=== PATIENT | female | born 2000 | race Caucasian/White ===

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

== ENCOUNTER → 2021-01-28 00:06 | Observation (INO) ==
[2021-01-27 23:03] LABS: Bacteria,Urine Moderate per hpf (None-Few); Bilirubin,Urine Negative (Negative); Blood,Urine Negative (Negative); Clarity,Urine Turbid (Clear); Color,Urine Yellow (Yellow); Glucose,Urine (UA) Normal (Normal); Ketones,Urine Negative (Negative); Leukocyte Esterase,Urine Large (Negative); Mucus,Urine Few per lpf (None-Few); Nitrite,Urine Negative (Negative); PH,Urine 6.5 pH Units (5.0-8.0); Protein,Urine Negative (Neg-Trace); Specific Gravity,Urine 1.015 (1.010-1.025); Squamous Epithelial Cell,Urine Few per hpf (None-Few); Urobilinogen,Urine Normal (Normal); WBC,Urine 15-30 per hpf (0-3)
== END | disposition home or self-care (01) ==
LOC: 1NENULAB
PROVIDERS: ADMIT Advanced Practice Midwife; ATTEND Advanced Practice Midwife

== ENCOUNTER 2021-02-06 14:43 | Inpatient (IN) ==
[2021-02-06 12:55] LABS: Basophils # 0.1 K/mcL (0.0-0.2); Basophils % 0.5 %; Eosinophils # 0.1 K/mcL (0.0-0.6); Eosinophils % 0.4 %; Hematocrit 36.4 % (35.3-44.9); Hemoglobin 11.9 g/dL (11.5-15.4); Immature Granulocytes % 0.7 % (0-4); Lymphocytes # 2.1 K/mcL (0.6-4.6); Lymphocytes % 15.9 %; Mean Corpuscular HGB Conc 32.7 g/dL (31.6-35.5); Mean Corpuscular Hemoglobin 29.6 pg (28.0-33.3); Mean Corpuscular Volume 90.5 fL (83.0-100.0); Monocytes # 0.6 K/mcL (0.0-1.3); Monocytes % 4.7 %; Platelet Count 222 K/mcL (140-400); Red Blood Count 4.02 M/mcL (3.82-4.97); Red Cell Distribution Width 13.8 % (11.5-14.5); Segmented Neutrophils % 77.8 %; White Blood Count 12.9 K/mcL (4.3-11.1)
[2021-02-06 13:15] LABS: Protein/Creatinine Ratio,Urine 0.73 mg/mg (0.00-0.20)
[2021-02-06 13:25] LABS: Alanine Aminotransferase 29 Units/L (7-52); Aspartate Amino Transferase 17 Units/L (13-39); BUN/Creatinine Ratio 24 (6-26); Blood Urea Nitrogen 12 mg/dL (6-20); Lactate Dehydrogenase 128 Units/L (140-271); Uric Acid 4.5 mg/dL (2.3-7.6); eGFR For African Americans > 60 (> 60); eGFR For Non-African Americans > 60 (> 60)
[~2021-02-06 14:43] MED LIST changes: +Acetaminophen/Butalbital/CaffeineTABLET PO PRN; -Ondansetron ODT 4 MG TAB.RAPDIS SL ONE
[2021-02-06] MEDS ORDERED: EPHEDrine 50 MG/ML VIAL IVP PRN (16:02)
[2021-02-06] MEDS ORDERED: Epidural Premix (fent/bupiv) 110 ML EP SCH (16:15)
[2021-02-06] MEDS ORDERED: Penicillin G Potassium 5,000,000 UNIT in 0.9 % Sodium Chloride Mini Bag 100 ML IVPB ONE (16:19)
[2021-02-06] MEDS ORDERED: Lidocaine 1% 20 ML MDV ID PRN (16:35)
[2021-02-06] MEDS ORDERED: Ondansetron 4 MG/2 ML VIAL IVP PRN (16:35)
[2021-02-06] MEDS ORDERED: *HR* Nalbuphine 10 MG/ML AMPUL IV PRN (16:35)
[2021-02-06] MEDS ORDERED: Azithromycin 500 MG in 0.9 % Sodium Chloride 250 ML IVPB ONE (16:35)
[2021-02-06] MEDS ORDERED: Famotidine 20 MG/2 ML VIAL IVP PRN (16:35)
[2021-02-06] MEDS ORDERED: Naloxone 0.4 MG/ML INJ IVP PRN (16:35)
[2021-02-06] MEDS ORDERED: Metoclopramide 10 MG/2 ML VIAL IVP PRN (16:35)
[2021-02-06] MEDS ORDERED: Ringers Solution, Lactated 1,000 ML ONE (16:42)
[2021-02-06] MEDS ORDERED: Ringers Solution, Lactated 1,000 ML IVC SCH (16:45)
[2021-02-06] MEDS ORDERED: miSOPROStoL 100 MCG TABLET PO ONE (18:19)
[2021-02-06 20:20] LABS: Influenza A PCR Negative (Negative); Influenza B PCR Negative (Negative); Resp. Syncytial Virus PCR Negative (Negative)
[2021-02-06 20:21] LABS: SARS-CoV-2 by PCR (In House) Negative (Negative)
[2021-02-06] MEDS ORDERED: Penicillin G Potassium 2,500,000 UNIT/105 ML MLS IVPB SCH (20:30)
[2021-02-06] MEDS ORDERED: Ropivacaine/PF 0.2% 20 ML VIAL ONE (23:08)
[2021-02-06] MEDS ORDERED: *HR* FentaNYL (PF) 100 MCG/2 ML VIAL ONE (23:08)
[2021-02-07] MEDS ORDERED: Oxytocin 20 units/ LR 1000 mL 20 UNIT/1,000 ML BAG IVC SCH ×2 (01:00→06:00)
[2021-02-07] MEDS ORDERED: Measles/Mumps/Rubella Vacc 0.5 ML VIAL SQ PRN (05:56)
[2021-02-07] MEDS ORDERED: Benzocaine/Menthol 56 GM AEROSOL SPRAY TP PRN (05:56)
[2021-02-07] MEDS ORDERED: Rho Immune Globulin 1,500 UNIT SYRINGE IM PRN (05:56)
[2021-02-07] MEDS: Prenatal Vit/FA 1 EACH TABLET PO SCH (09:16)
[2021-02-07] MEDS: Ibuprofen 600 MG TABLET PO PRN ×2 (09:16→18:00)
[2021-02-07] MEDS: Acetaminophen 325 MG TABLET PO PRN ×2 (10:34→20:32)
[2021-02-08] MEDS: Ibuprofen 600 MG TABLET PO PRN ×2 (00:04→08:50)
[2021-02-08] MEDS: Acetaminophen 325 MG TABLET PO PRN (03:45)
[2021-02-08 04:27] LABS: Basophils # 0.1 K/mcL (0.0-0.2); Basophils % 0.5 %; Eosinophils # 0.1 K/mcL (0.0-0.6); Eosinophils % 0.7 %; Hematocrit 32.8 % (35.3-44.9); Immature Granulocytes % 0.6 % (0-4); Lymphocytes # 2.6 K/mcL (0.6-4.6); Lymphocytes % 24.6 %; Mean Corpuscular HGB Conc 31.4 g/dL (31.6-35.5); Mean Corpuscular Hemoglobin 29.2 pg (28.0-33.3); Mean Corpuscular Volume 92.9 fL (83.0-100.0); Mean Platelet Volume 11.7 fL (9.4-12.4); Monocytes # 0.5 K/mcL (0.0-1.3); Monocytes % 5.1 %; Neutrophils # 7.1 K/mcL (1.6-8.9); Platelet Count 183 K/mcL (140-400); Red Blood Count 3.53 M/mcL (3.82-4.97); Red Cell Distribution Width 14.2 % (11.5-14.5); Segmented Neutrophils % 68.5 %; White Blood Count 10.4 K/mcL (4.3-11.1)
[2021-02-08 04:29] LABS: Hemoglobin 10.3 g/dL (11.5-15.4)
[2021-02-08 07:57] VITALS: BP 109/68
[2021-02-08] MEDS: Prenatal Vit/FA 1 EACH TABLET PO SCH (08:50)
== END 2021-02-08 13:30 | disposition home or self-care (01) | DRG 560 ==
LOC: 1NENULAB → 1NENUOBS 02-07 08:39
PROVIDERS: ADMIT Obstetrics & Gynecology; ATTEND Obstetrics & Gynecology